=== PATIENT | female | born 1965 | race Caucasian/White ===

== ENCOUNTER 2019-01-07 10:50 | Emergency (ER) | payer MEDICARE, MEDICAID ==
[~2019-01-07] VITALS: Ht 185.4 cm; Wt 86.9 kg
[2019-01-07 11:03] VITALS: BP 136/90
[2019-01-07] MEDS ORDERED: DIPH,PERTUSS(ACELL),TET VAC/PF 0.5 ML IM-VACC ONE ×2 (11:16→11:30)
--- NOTE | 2019-01-07 12:08 | NUR ---
right hand dressing applied
== END 2019-01-07 12:16 | disposition home or self-care (01) ==
LOC: ED 11:15
DX: S61.411A Laceration without foreign body of right hand, initial encounter (principal); M54.9 Dorsalgia, unspecified; G89.29 Other chronic pain; F17.200 Nicotine dependence, unspecified, uncomplicated; W25.XXXA Contact with sharp glass, initial encounter; Y93.89 Activity, other specified; Y92.009 Unspecified place in unspecified non-institutional (private) residence as the place of occurrence of the external cause; Y99.8 Other external cause status
CPT/HCPCS: 90471; 90715

== ENCOUNTER 2020-04-02 09:53 | Emergency (ER) | payer MEDICARE, MEDICAID ==
[~2020-04-02] VITALS: Ht 188 cm; Wt 87.3 kg
--- NOTE | 2020-04-02 10:34 | NUR ---
PT A&[X4, RESP EVEN, SPEECH CLEAR. C/O DIFFICULTY SPEAKING & TAKING DEEP BREATHES R/T RIB PAIN LT LAT BREAST AREA. STATES SHE FELL TWICE YESTERDAY. ABRASIONS TO BILAT LOWER LEGS. PAIN TO RT KNEE - DIFFERENT FROM USUAL PAIN. MINOR ABRASION RT ELBOW W/ ASSOCIATED PAIN. LT RIB AREA: SKIN INTACT, NO ECCHYMOSIS.
--- NOTE | 2020-04-02 10:41 | NUR ---
TOOK IR MORPHINE 15MG AT 0430 TODAY
--- NOTE | 2020-04-02 10:48 | NUR ---
DR NORMAN BS FOR EXAM
[2020-04-02] MEDS ORDERED: WARF1TAB2 PO (10:54)
[2020-04-02] MEDS ORDERED: MORP-30 PO (10:54)
[2020-04-02] MEDS ORDERED: WARF5TAB2 PO (10:54)
[2020-04-02] MEDS ORDERED: MORP15TA PO (10:54)
--- NOTE | 2020-04-02 10:55 | NUR ---
PT UNSURE OF EXACT COUMADIN DOSING SCHEDULE; STATES "THEY JUST CHANGED IT AND I CAN'T KEEP UP". PT STATES "I DON'T WANT THE MRI HERE" DR NORMAN WILL BE NOTIFIED.
[2020-04-02 11:20] LABS: BASOPHILS # (AUTO) 0.04 x10^3/uL (0-0.1); BASOPHILS % (AUTO) 0 % (0-1); EOSINOPHILS # (AUTO) 0.36 x10^3/uL (0-0.4); EOSINOPHILS % (AUTO) 4 % (1-7); LYMPHOCYTES % (AUTO) 30 % (22-44); MD NO; MEAN CORPUSCULAR HEMOGLOBIN 33.2 pg (27.0-34.8); MEAN CORPUSCULAR HGB CONC 33.1 g/dL (32.4-35.8); MEAN CORPUSCULAR VOLUME 100.4 fL (80-100); MEAN PLATELET VOLUME 7.5 fL (7.4-10.4); MONOCYTES # (AUTO) 0.83 x10^3/uL (0.2-0.8); MONOCYTES % (AUTO) 9 % (2-9); NEUTROPHILS # (AUTO) 5.13 x10^3/uL (1.8-6.8); NEUTROPHILS % (AUTO) 57 % (42-75); PLATELET COUNT 228 x10^3/uL (130-400); RED BLOOD COUNT 4.68 x10^6/uL (3.82-5.3); RED CELL DISTRIBUTION WIDTH 14.2 % (9.6-15.2)
[2020-04-02 11:30] LABS: INTERNATIONAL NORMALIZED RATIO 1.61 (0.93-1.1); PROTHROMBIN TIME 17.2 Seconds (9.6-11.5)
[2020-04-02 11:32] LABS: ALANINE AMINOTRANSFERASE 30 U/L (12-78); ANION GAP 7 mmol/L (5-15); CALCIUM 8.8 mg/dL (8.5-10.1); CHLORIDE 93 mmol/L (98-107); CREATININE 0.57 mg/dL (0.55-1.02)
[2020-04-02 11:39] LABS: ALKALINE PHOSPHATASE 89 U/L (45-117); BILIRUBIN,TOTAL 0.8 mg/dL (0.2-1.0); TOTAL PROTEIN 7.6 g/dL (6.4-8.2)
--- NOTE | 2020-04-02 11:40 | NUR ---
O2 SAT UPPER 80'S. REMINDED PT TO TAKE DEEP BREATHES OFTEN. O2 SAT INCREASED TO 90%. TO XR PER ALYSE.
--- NOTE | 2020-04-02 13:31 | NUR ---
PT RESTING ON ALYSE. STATES "I REALLY WANT TO GO HOME NOW"
--- NOTE | 2020-04-02 13:43 | NUR ---
ANDREZ VASQUEZ AT BS
--- NOTE | 2020-04-02 14:13 | NUR ---
GILBERT BS FOR SPLINTING
[2020-04-02 14:35] VITALS: BP 122/74
--- NOTE | 2020-04-02 14:35 | NUR ---
AMA FORM SIGNED PER PT. PT AMBULATORY TO DC DESK USING OWN CANE.
== END 2020-04-02 14:37 | disposition left against medical advice (07) ==
LOC: ED 12:30
DX: S22.060A Wedge compression fracture of T7-T8 vertebra, initial encounter for closed fracture (principal); S22.080A Wedge compression fracture of T11-T12 vertebra, initial encounter for closed fracture; S20.212A Contusion of left front wall of thorax, initial encounter; S50.311A Abrasion of right elbow, initial encounter; S80.211A Abrasion, right knee, initial encounter; S90.512A Abrasion, left ankle, initial encounter; S09.90XA Unspecified injury of head, initial encounter; E87.1 Hypo-osmolality and hyponatremia; R79.1 Abnormal coagulation profile; M25.461 Effusion, right knee; E78.5 Hyperlipidemia, unspecified; E11.9 Type 2 diabetes mellitus without complications; G89.29 Other chronic pain; Z86.718 Personal history of other venous thrombosis and embolism; X50.1XXA Overexertion from prolonged static or awkward postures, initial encounter; Y93.89 Activity, other specified; Y92.009 Unspecified place in unspecified non-institutional (private) residence as the place of occurrence of the external cause; Y99.8 Other external cause status
CPT/HCPCS: 29105; 29125; 36415; 70450; 72072; 72110; 80053; 85025; 85610; 99285